=== PATIENT | female | born 1995 | race Caucasian/White ===

== ENCOUNTER → 2019-04-01 | Outpatient (CLI) | payer OTHER ==
[2019-04-01 15:08] LABS: BASO # 0.1 10^3/uL (0.0-0.2); BASO % 0.4 % (0.0-1.0); EOS # 0.2 10^3/uL (0.0-0.5); EOS % 1.7 % (0.0-3.0); HEMATOCRIT 38.1 % (36.0-47.0); HEMOGLOBIN 12.7 g/dl (12.0-15.5); LYMPH # 2.5 10^3/uL (1.5-5.0); LYMPH % 22.4 % (24.0-44.0); MEAN CORPUSCULAR HEMOGLOBIN 31.1 pg (27.0-33.0); MEAN CORPUSCULAR HGB CONC 33.3 g/dl (32.0-36.5); MEAN CORPUSCULAR VOLUME 93.4 fl (80.0-96.0); NEUTROPHILS # 7.4 10^3/uL (1.5-8.5); NEUTROPHILS % 66.2 % (36.0-66.0); PLATELET COUNT, AUTOMATED 310 10^3/uL (150-450); RED BLOOD COUNT 4.08 10^6/uL (4.00-5.40); WHITE BLOOD COUNT 11.2 10^3/uL (4.0-10.0)
[2019-04-01 17:02] LABS: CHLAMYDIA DNA AMPLIFICATION NEGATIVE (NEGATIVE); GC DNA AMPLIFICATION NEGATIVE (NEGATIVE)
[2019-04-02 12:15] LABS: HEPATITIS B SURFACE ANTIGEN NEGATIVE (NEGATIVE); HEPATITIS C VIRUS ABY INDEX < 0.0 INDEX (<0.8); HIV 1&2 SCREEN CENTAUR NEGATIVE (NEGATIVE); RUBELLA IgG QUALITATIVE IMMUNE (IMMUNE)
== END ==
LOC: M LAB 14:30
PROVIDERS: ATTEND Advanced Practice Midwife
DX: Z34.01 Encounter for supervision of normal first pregnancy, first trimester (principal); Z36.89 Encounter for other specified antenatal screening

== ENCOUNTER 2019-04-14 11:39 | Emergency (ER) | payer OTHER ==
[~2019-04-14] VITALS: Ht 157.5 cm; Wt 82.3 kg
[2019-04-14] MEDS ORDERED: ACET160S3 PO (11:48)
[2019-04-14] MEDS ORDERED: prenatal (11:48)
[2019-04-14 12:29] LABS: BASO % 0.3 % (0.0-1.0); EOS # 0.2 10^3/uL (0.0-0.5); EOS % 1.9 % (0.0-3.0); HEMATOCRIT 39.6 % (36.0-47.0); HEMOGLOBIN 13.1 g/dl (12.0-15.5); LYMPH # 2.4 10^3/uL (1.5-5.0); LYMPH % 22.3 % (24.0-44.0); MEAN CORPUSCULAR HEMOGLOBIN 30.8 pg (27.0-33.0); MEAN CORPUSCULAR HGB CONC 33.1 g/dl (32.0-36.5); MEAN CORPUSCULAR VOLUME 93.2 fl (80.0-96.0); MONO % 8.8 % (0.0-5.0); NEUTROPHILS # 7.2 10^3/uL (1.5-8.5); NEUTROPHILS % 66.4 % (36.0-66.0); PLATELET COUNT, AUTOMATED 328 10^3/uL (150-450); RED BLOOD COUNT 4.25 10^6/uL (4.00-5.40); WHITE BLOOD COUNT 10.8 10^3/uL (4.0-10.0)
[2019-04-14 12:55] LABS: BLOOD UREA NITROGEN 10 MG/DL (7-18); CALCIUM LEVEL 9.4 MG/DL (8.5-10.1); CARBON DIOXIDE LEVEL 24 MEQ/L (21-32); CHLORIDE LEVEL 104 MEQ/L (98-107); CREATININE FOR GFR 0.62 MG/DL (0.55-1.30); GLOMERULAR FILTRATION RATE > 60.0 (>60); GLUCOSE, FASTING 81 MG/DL (70-100); HCG, SERUM QUANTITATIVE 76372 MIU/ML; SODIUM LEVEL 135 MEQ/L (136-145)
--- NOTE | 2019-04-14 13:29 | REP ---
Left lower extremity deep vein duplex ultrasound: The deep veins demonstrate normal compression, normal Doppler color flow and normal Doppler waveforms with respiration and augmentation from the popliteal vein to the common femoral vein. Impression: There is no left lower extremity deep vein thrombus. Electronically Signed by Go Evans MD 04/14/2019 01:20 P
--- NOTE | 2019-04-14 13:56 | REP ---
First trimester obstetric ultrasound, stat request for vaginal spotting: There are no comparison studies. The study is performed with transabdominal and Doppler ultrasound assessment: There is an intrauterine gestational sac with a pole. The heart rate is 158 beats per minute. The pole crown-rump length is 2.4 cm. This corresponds to a gestational age of 9 weeks 1 day. The JAZLYN is 11/16/2019. Gestational age by LMP is 8 weeks 5 days/JAZLYN 11/19/2019. There is a subchorionic hematoma along the left lateral margin of the uterus measuring 1.5 x 1.2 x 1.3 cm. There is a subchorionic hematoma along the right lateral margin of the uterus superior to the gestational sac measuring 1.8 by 0.9 x 1.7 cm. There is a solid hypoechoic midline lesion in the uterine fundus measuring 3.9 x 3.8 x 3.3 cm, likely a fibroid however subchorionic hematoma cannot be entirely discounted. The intrauterine gestational sac is in the right lateral portion of the uterus. Therefore, this may be a septate/bicornuate uterus. The adnexa are unremarkable. There is no free fluid in the pelvis. Impression: Viable 2-aqei-1-day intrauterine gestation. Subchorionic hematomas as described. Fibroid versus large subchorionic hematoma in the uterine fundus. Question of bicornuate uterus. Follow-up is recommended. Electronically Signed by Go Evans MD 04/14/2019 01:47 P
[2019-04-14 14:25] VITALS: BP 115/59
== END 2019-04-14 14:28 | disposition home or self-care (01) ==
LOC: M ED 11:39
DX: O20.0 Threatened abortion (principal); O26.891 Other specified pregnancy related conditions, first trimester; O20.8 Other hemorrhage in early pregnancy; Z32.01 Encounter for pregnancy test, result positive; Z3A.09 9 weeks gestation of pregnancy; Z79.899 Other long term (current) drug therapy; Z88.8 Allergy status to other drugs, medicaments and biological substances

== ENCOUNTER → 2019-06-24 | Outpatient (CLI) | payer OTHER ==
[~2019-06-24] MED LIST: ACET160S3 PO; prenatal
--- NOTE | 2019-06-25 02:00 | REP ---
Clinical: Anatomical evaluation. Comparison: None . Findings: Examination demonstrates a single live intrauterine in cephalic presentation. motion is identified by technologist. Placenta is noted anterior and grade I without evidence for placenta previa or abruption. Amniotic fluid volume is normal. Cervix measures 3.4 cm in length and appears closed. No evidence for nuchal cord. Suggestions for 4.3 cm right intramural fibroid. Gestational age by LMP 18 weeks 6 days with JAZLYN 11/19/2019 . Gestational age by current measurements 18 weeks 6 days with JAZLYN 11/19/2019 . FHR equals 139 beats per minute. BPD 4.4 cm 19 weeks 2 days HC 16.2 cm 19 weeks 0 days AC 13.8 cm 19 weeks 2 days FL 2.8 cm 18 weeks 4 days HL 3.0 cm 20 weeks 0 days HC/AC ratio 1.17 Estimated weight 266 grams ( 50th percentile). Anatomical assessment demonstrates normal structures including cranium, choroid plexus, cavum, cerebellum/posterior fossa, facial features, lungs, four-chamber heart/ventricular outflow tracts, diaphragm, stomach, cord insertion/three-vessel cord, kidneys/bladder, and extremities. Impression: 1. Single live intrauterine in cephalic presentation demonstrating appropriate interval growth. 2. Limited evaluation the spine. Remainder of the anatomical assessment is complete and normal. 3. Possible 0.3 cm right intramural fibroid.
== END ==
LOC: M WHC 09:08
PROVIDERS: ATTEND Advanced Practice Midwife
DX: Z34.82 Encounter for supervision of other normal pregnancy, second trimester (principal)
CPT/HCPCS: 76811; G0463

== ENCOUNTER → 2019-07-30 | Outpatient (CLI) | payer OTHER ==
[~2019-07-30] MED LIST changes: +IBUP80TA PO; +OMEP10CASR PO; +PRENCHW PO
--- NOTE | 2019-07-31 15:17 | REP ---
OBSTETRIC SONOGRAPHY: HISTORY: Supervision of followup anatomy, spine. Comparison study June 24, 2019. The study is acquired on 07/30/2019 and is presented to me for interpretation on 07/31/2019. SONOGRAPHIC FINDINGS: Scanning through the gravid uterus demonstrates a single living intrauterine gestation in a cephalic lie. motion is observed and heart rate is recorded at 143 beats per minute. An anterior grade 1 placenta is seen without evidence of previa or abruption. Amniotic fluid is subjectively normal. Closed cervical length is 3.4 cm, measured transabdominally. No extrauterine abnormality is observed. There has been appropriate interval growth. spine is visualized and appears normal today. There is a 5.4 cm heterogeneous area in the right uterine wall consistent with fibroid. BIOMETRY CHART: BPD 5.8 cm = 23 weeks 6 days HC 21.7 cm = 23 weeks 5 days AC 19.3 cm = 24 weeks 0 days FL 4.3 cm = 24 weeks 1 day HL 4.0 cm = 24 weeks 3 days HC/AC ratio normal 1.12 Cephalic index normal 0.75. Estimated weight 652 grams, 1 pound 7 ounces, 45th percentile for 24 weeks 0 days. IMPRESSION: Viable single intrauterine gestation at 23 weeks 4 days by today's composite criteria. Expected gestational age estimate based on prior sonography is 24 weeks 0 days. JAZLYN by prior sonography 14 November 25, 2019. spine is unremarkable. There is appropriate interval growth.
== END ==
LOC: M WHC 13:55
PROVIDERS: ATTEND Advanced Practice Midwife
DX: Z36.2 Encounter for other antenatal screening follow-up (principal); Z3A.23 23 weeks gestation of pregnancy

== ENCOUNTER → 2019-10-22 | Outpatient (REF) | payer OTHER | LOC: M SFHCWAGY 16:41 | PROVIDERS: ATTEND Advanced Practice Midwife | DX: Z34.03 Encounter for supervision of normal first pregnancy, third trimester (principal); Z3A.00 Weeks of gestation of pregnancy not specified ==

== ENCOUNTER 2019-11-05 15:34 | Inpatient (IN) | payer OTHER ==
[2019-11-05] VITALS (20 sets, daily range): BP systolic 94–148; BP diastolic 51–72
[~2019-11-05] VITALS: Ht 160 cm; Wt 93.6 kg
[~2019-11-05 15:34] MED LIST changes: -IBUP80TA PO; -OMEP10CASR PO; -PRENCHW PO
[2019-11-05] MEDS ORDERED: OMEP10CASR PO (16:00)
[2019-11-05] MEDS ORDERED: PENICILLIN G POTASSIUM IV 5 MU in D5W MINI-BAG PLUS 100 ML IV STA (16:24)
[2019-11-05] MEDS ORDERED: LR 1,000 ML IV SCH (16:48)
[2019-11-05] MEDS ORDERED: OXYTOCIN DRIP 30 UNITS in IV 1 EA IV SCH ×2 (17:00→23:36)
[2019-11-05 17:27] LABS: HEMATOCRIT 37.4 % (36.0-47.0); HEMOGLOBIN 12.3 g/dl (12.0-15.5); MEAN CORPUSCULAR HEMOGLOBIN 30.4 pg (27.0-33.0); MEAN CORPUSCULAR HGB CONC 32.9 g/dl (32.0-36.5); MEAN CORPUSCULAR VOLUME 92.3 fl (80.0-96.0); PLATELET COUNT, AUTOMATED 250 10^3/uL (150-450); RED BLOOD COUNT 4.05 10^6/uL (4.00-5.40); WHITE BLOOD COUNT 15.2 10^3/uL (4.0-10.0)
[2019-11-05] MEDS ORDERED: FENTANYL 2MCG/ML ROPIVACAINE 0.2% IN 0.9% NACL 100ML IVBAG As Ordered ONE (19:46)
[2019-11-05] MEDS ORDERED: diphenhydrAMINE 50MG/ML VIAL (J1200) IV PRN (20:45)
[2019-11-05] MEDS ORDERED: FENTANYL/ROPIVACAINE/NACL BAG 100 ML EPIDURAL SCH (20:45)
[2019-11-05] MEDS ORDERED: ONDANSETRON 4MG/2ML VIAL IV PRN (20:45)
[2019-11-05] MEDS ORDERED: REFRIGERATOR IV KEYS XX PRN (20:45)
[2019-11-05] MEDS ORDERED: EPIDURAL/PCA KEYS XX PRN (20:45)
[2019-11-05] MEDS ORDERED: ePHEDrine SULFATE 25 MG/5 ML(5MG/ML) SYRINGE IV PRN (20:45)
[2019-11-05] MEDS ORDERED: NALOXONE INJ 0.4MG/1ML VIAL (J2310 PER 1MG) IV PRN (20:45)
[2019-11-05] MEDS ORDERED: EPIDURAL COMMENT XX SCH (20:45)
[2019-11-05] MEDS ORDERED: LACTATED RINGER'S 1000 ML IV PRN (20:45)
[2019-11-05] MEDS ORDERED: PENICILLIN G POTASSIUM IV 2.5 MU in IV 1 EA IV SCH (21:00)
[2019-11-05 23:16] LABS: CORD GAS ABE V -6.9; CORD GAS HCO3 V 21.1 MEQ/L; CORD GAS O2 SAT V 42.9 %; CORD GAS PCO2 V 51.3 mmHg; CORD GAS PH V 7.232 UNITS; CORD GAS PO2 V 20.9 mmHg; CORD GAS SBC V 17.7 MEQ/L; CORD GAS TCO2 V 22.7 MEQ/L
[2019-11-05 23:17] LABS: CORD GAS ABE A -10.2; CORD GAS HCO3 A 19.9 MEQ/L; CORD GAS O2 SAT A 69.6 %; CORD GAS PH A 7.132 UNITS; CORD GAS PO2 A 36.4 mmHg; CORD GAS TCO2 A 21.8 MEQ/L
[2019-11-05] MEDS ORDERED: DIBUCAINE 1% OINTMENT 30GM TOP PRN (23:45)
[2019-11-05] MEDS ORDERED: ACETAMINOPHEN TAB 650MG DOSE (2X325MG) PO PRN (23:45)
[2019-11-05] MEDS ORDERED: METHYLERGONOVINE MALEATE 0.2 MG TAB PO PRN (23:45)
[2019-11-05] MEDS ORDERED: MEASLES,MUMPS,RUBELLA VACCINE INJ (MMR-II) (90707) SC SCH (23:45)
[2019-11-05] MEDS ORDERED: ACETAMINOPHEN 500 MG TAB PO PRN (23:45)
[2019-11-05] MEDS ORDERED: IBUPROFEN 600MG TAB PO PRN (23:45)
[2019-11-05] MEDS ORDERED: RHOGAM 300 MCG (1500 IU) INJ (J2790) IM SCH (23:45)
[2019-11-05] MEDS ORDERED: DOCUSATE SODIUM 100 MG CAP PO PRN (23:45)
[2019-11-06 00:08] VITALS: BP 125/58
[2019-11-06 01:25] VITALS: BP 109/52
[2019-11-06 06:00] VITALS: BP 107/57
[2019-11-06] MEDS: IBUPROFEN 800 MG TAB PO PRN ×2 (08:57→19:54)
[2019-11-06] MEDS: PRENATAL VITAMINS CHEWABLE TABLET PO SCH (08:57)
[2019-11-06] MEDS ORDERED: INFLUENZA QUADRIVALENT PF VACCINE 0.5ML SYRINGE IM ONE (09:00)
[2019-11-06 18:00] VITALS: BP 116/64
[2019-11-07 06:00] VITALS: BP 115/57
[2019-11-07] MEDS: PRENATAL VITAMINS CHEWABLE TABLET PO SCH (08:08)
[2019-11-07] MEDS ORDERED: INFLUENZA QUADRIVALENT PF VACCINE 0.5ML SYRINGE IM ONE (09:00)
--- NOTE | 2019-11-07 10:07 | IPNPDOC ---
Progress Note Date of Service: Nov 07, 2019 Day#: 2 Progress Note Progress Note Post Day 2 S: Libertad is a 23yo [id number] s/p uncomplicated at 38wk after presenting with PROM. Doing well PPD2. She is voiding without difficulty. without issue. Lochia is minimal. Ambulating with problem. Tolerating regular diet with no n/v. No f/c/CP/SOB. Feels ready to go home. O: Vitals wnl A+O x3 Fundus firm at u-1cm No pain with palpation of calves, trace BLE edema A: Libertad is a 23yo [id number] s/p uncomplicated at 38wk after presenting with PROM. Doing well PPD2. P: Discharge to home today Interested in Mirena IUD for contraception Routine PP visit in 6 weeks at [facility] Vaginal rest and no heavy lifting 6 weeks Discussed return precautions and at length Jeanne Schuler MD VS, I&O, 24H, Fishbone Vital Signs/I&O Vital Signs Date Time Temp Pulse Resp B/P (MAP) Pulse Ox O2 Delivery O2 Flow Rate FiO2 11/07/19 06:00 96.8 69 16 115/57 (76) 11/06/19 18:00 100 11/06/19 06:00 Room Air Jeanne Schuler MD Nov 07, 2019 10:07
--- NOTE | 2019-11-07 10:09 | DS.PDOC ---
Discharge Summary General Date of Admission Nov 05, 2019 at 16:21 Date of Discharge Nov 07, 2019 Discharge Summary PROCEDURES PERFORMED DURING STAY: spontaneous vaginal delivery ADMITTING DIAGNOSES: 1. PROM at 38wk with SIUP DISCHARGE DIAGNOSES: 1. PROM at 38wk with SIUP, delivered COMPLICATIONS/CHIEF COMPLAINT: SROM. HISTORY OF PRESENT ILLNESS/HOSPITAL COURSE: Libertad is a 23yo [id number] s/p uncomplicated at 38wk after presenting with PROM. Doing well PPD2. At time of discharge, vitals are wnl, exam benign. She is hemodynamically stable with no e/o infection. DISCHARGE MEDICATIONS: Please see below. ALLERGIES: Please see below. PHYSICAL EXAMINATION ON DISCHARGE: Vitals wnl A+O x3 Fundus firm at u-1cm No pain with palpation of calves, trace BLE edema LABORATORY DATA: Please see below. DISCHARGE Instructions/PLAN: Discharge to home today Interested in Mirena IUD for contraception Routine PP visit in 6 weeks at [facility] Vaginal rest and no heavy lifting 6 weeks Discussed return precautions and at length DISPOSITION: home DISCHARGE CONDITION: Stable TIME SPENT ON DISCHARGE: Greater than 20 minutes. Jeanne Schuler MD Vital Signs/I&Os Vital Signs Date Time Temp Pulse Resp B/P (MAP) Pulse Ox O2 Delivery O2 Flow Rate FiO2 11/07/19 06:00 96.8 69 16 115/57 (76) 11/06/19 18:00 100 11/06/19 06:00 Room Air Discharge Medications Scheduled Omeprazole (Omeprazole) 10 Mg Capsule.dr, 10 MG PO DAILY, (Reported) Miscellaneous Medications [] , (Reported) Allergies Coded Allergies: nitrofurantoin (Verified Allergy, Intermediate, rash, 04/14/19) Jeanne Schuler MD Nov 07, 2019 10:09
[2019-11-07] MEDS ORDERED: IBUP80TA PO (10:11)
[2019-11-07] MEDS ORDERED: PRENCHW PO (10:12)
== END 2019-11-07 12:39 | disposition home or self-care (01) | DRG 807 ==
LOC: M LDO 15:34 → M LDI 16:21 → M OBS 11-06 00:55
PROVIDERS: ADMIT Advanced Practice Midwife; ATTEND Advanced Practice Midwife
PROC: 10E0XZZ Delivery of Products of Conception, External Approach (ICD-10-PCS; principal; 2019-11-05)
DX: O69.81X0 Labor and delivery complicated by cord around neck, without compression, not applicable or unspecified (principal); Z37.0 Single live birth; Z3A.38 38 weeks gestation of pregnancy; O99.824 Streptococcus B carrier state complicating childbirth

== ENCOUNTER → 2020-06-30 | Outpatient (REF) | payer OTHER ==
[~2020-06-30] MED LIST changes: +IBUP80TA PO; +OMEP10CASR PO; +PRENCHW PO
[2020-06-30 13:59] LABS: HCG, SERUM QUALITATIVE NEGATIVE (NEGATIVE)
== END ==
LOC: M PLALAB 12:39
PROVIDERS: ATTEND Advanced Practice Midwife
DX: N91.2 Amenorrhea, unspecified (principal)
CPT/HCPCS: 36415; 84703; G0463